=== PATIENT | male | born 1935 | race Caucasian/White ===

== ENCOUNTER 2019-05-25 12:52 | Emergency (ER) | payer MEDICARE, OTHER ==
[~2019-05-25] VITALS: Ht 167.6 cm; Wt 72.6 kg
--- NOTE | 2019-05-25 13:13 | NUR ---
Dr porter at the bedside for MSE.
--- NOTE | 2019-05-25 13:33 | NUR ---
Pt out of Er for Ct.
--- NOTE | 2019-05-25 13:45 | NUR ---
Pt back from Ct, denies pain and discomfort. Resting in bed, caregiver at the bedside.
--- NOTE | 2019-05-25 14:10 | NUR ---
DR HUYNH MADE PATIENT AWARE OF TEST RESULTS WILL DC HOME. DOCUMENTATION COORDINATOR AT BEDSIDE.
[2019-05-25 14:13] VITALS: BP 136/69
== END 2019-05-25 14:16 | disposition home or self-care (01) ==
LOC: ER 12:52
DX: S00.03XA Contusion of scalp, initial encounter (principal); W18.00XA Striking against unspecified object with subsequent fall, initial encounter; Y93.89 Activity, other specified; Y92.830 Public park as the place of occurrence of the external cause; Y99.8 Other external cause status
CPT/HCPCS: 70450; A4663